=== PATIENT | male | born 1950 | race Caucasian/White ===

== ENCOUNTER 2019-12-16 22:40 | Inpatient (IN) ==
[2019-12-17] MEDS ORDERED: *HR* Promethazine 25 MG/ML VIAL IVP PRN (03:02)
[2019-12-17] MEDS ORDERED: Naloxone 0.4 MG/ML INJ IVP PRN (03:02)
[2019-12-17] MEDS ORDERED: Ipratropium/Albuterol Neb 3 ML IH PRN (03:07)
[2019-12-17] MEDS: MethylPREDNISolone 40 MG/ML VIAL IVP SCH ×2 (05:42→17:48)
[2019-12-17 06:28] LABS: Hemoglobin 8.4 g/dL (12.9-16.9); Immature Granulocytes % 0.4 % (0-4); Mean Platelet Volume 11.6 fL (9.4-12.4)
[2019-12-17 06:29] LABS: Basophils % 0.3 %; Eosinophils # 0.3 K/mcL (0.0-0.6); Hematocrit 28.7 % (37.5-50.1); Immature Platelets 7.4 % (1.1-6.1); Lymphocytes # 1.3 K/mcL (0.6-4.6); Lymphocytes % 17.9 %; Mean Corpuscular HGB Conc 29.3 g/dL (31.6-35.5); Mean Corpuscular Hemoglobin 27.9 pg (28.0-33.3); Mean Corpuscular Volume 95.3 fL (83.0-100.0); Monocytes # 0.8 K/mcL (0.0-1.3); Monocytes % 11.8 %; Red Blood Count 3.01 M/mcL (4.19-5.50); Red Cell Distribution Width 18.8 % (11.5-14.5); Segmented Neutrophils % 65.6 %; White Blood Count 7.1 K/mcL (4.3-11.1)
[2019-12-17 06:30] LABS: Neutrophils # 4.7 K/mcL (1.6-8.9); Platelet Count 96 K/mcL (140-400)
[2019-12-17 06:36] LABS: INR 1.2; Prothrombin Time 14.1 Seconds (9.4-12.1)
[2019-12-17 06:55] LABS: Troponin I 0.83 ng/mL (< 0.04)
[2019-12-17 06:56] LABS: % Iron Saturation 8 % (20-55); Alanine Aminotransferase 16 Units/L (7-52); Albumin 3.5 g/dL (3.5-5.7); Albumin/Globulin Ratio 1.3 (1.1-2.2); Alkaline Phosphatase 63 Units/L (34-104); Aspartate Amino Transferase 18 Units/L (13-39); BUN/Creatinine Ratio 9 (6-26); Bilirubin,Total 0.6 mg/dL (0.3-1.0); Blood Urea Nitrogen 9 mg/dL (8-23); Calcium 8.8 mg/dL (8.6-10.3); Carbon Dioxide 34 mEq/L (23-29); Chloride 101 mEq/L (98-107); Globulin 2.7 g/dL (2.4-3.5); Glucose 168 mg/dL (70-105); Iron 32 mcg/dL (65-175); Magnesium 1.6 mg/dL (1.6-2.6); Osmolality,Calculated 297 (280-300); Phosphorous 2.6 mg/dL (2.7-4.5); Potassium 3.4 mEq/L (3.5-5.1); Sodium 142 mEq/L (136-145); Total Protein 6.2 g/dL (6.4-8.9); Transferrin 282 mg/dL (203-362); eGFR For African Americans > 60 (> 60); eGFR For Non-African Americans > 60 (> 60)
[2019-12-17 07:07] LABS: Thyroid Stimulating Hormone 1.829 mcIU/mL (0.340-5.600)
[2019-12-17 07:12] LABS: Ferritin 445 ng/mL (20-250)
[2019-12-17 07:36] LABS: Folate 16.4 ng/mL (3.0-16.0)
[2019-12-17 08:28] LABS: Estimated Average Glucose 148 mg/dl
[2019-12-17] MEDS: Furosemide 20 MG/2 ML VIAL IVP SCH ×2 (09:57→17:48)
[2019-12-17] MEDS: Azithromycin 500 MG in 0.9 % Sodium Chloride 250 ML IVPB SCH (09:57)
[2019-12-17] MEDS: Pantoprazole 40 MG VIAL IVP SCH (09:58)
[2019-12-17] MEDS ORDERED: Cyanocobalamin (B-12) 1,000 MCG/ML VIAL IM ONE (10:37)
[2019-12-17] MEDS ORDERED: *HR* Dextrose 50 % in Water (Syg) 50 ML SYRINGE IVP PRN (10:39)
[2019-12-17] MEDS ORDERED: D5% in Water 1,000 ML IVC PRN (10:39)
[2019-12-17] MEDS ORDERED: Dextrose Gel 15 GM/37.5 ML TUBE PO PRN ×2 (10:39)
[2019-12-17] MEDS: cefTRIAXone 1,000 MG in Water for inj. (sterile) 10 ML IVP SCH (11:42)
[2019-12-17] MEDS: Insulin LISPRO 300 UNITS/3 ML VIAL SQ SCH ×2 (11:46→17:48)
[2019-12-17] MEDS ORDERED: Ipratropium/Albuterol Neb 3 ML IH SCH (12:00)
[2019-12-17] MEDS: Budesonide/Formoterol 160/4.5 1 PUFF INH IH SCH (19:44)
[2019-12-18] MEDS: Insulin LISPRO 300 UNITS/3 ML VIAL SQ SCH ×4 (00:18→11:32)
[2019-12-18] MEDS ORDERED: Insulin LISPRO 300 UNITS/3 ML VIAL SQ ONE (01:11)
[2019-12-18] MEDS: Budesonide/Formoterol 80/4.5 1 PUFF INH IH SCH ×3 (01:19→08:02)
[2019-12-18 03:47] LABS: Hematocrit 27.9 % (37.5-50.1); Hemoglobin 8.1 g/dL (12.9-16.9); Immature Granulocytes % 0.5 % (0-4); Immature Platelets 8.8 % (1.1-6.1); Lymphocytes # 0.4 K/mcL (0.6-4.6); Lymphocytes % 7.6 %; Mean Corpuscular Hemoglobin 27.6 pg (28.0-33.3); Mean Corpuscular Volume 94.9 fL (83.0-100.0); Monocytes # 0.4 K/mcL (0.0-1.3); Monocytes % 6.5 %; Neutrophils # 4.7 K/mcL (1.6-8.9); Red Blood Count 2.94 M/mcL (4.19-5.50); Red Cell Distribution Width 18.5 % (11.5-14.5); Segmented Neutrophils % 85.4 %; White Blood Count 5.5 K/mcL (4.3-11.1)
[2019-12-18 03:54] LABS: Platelet Count 95 K/mcL (140-400)
[2019-12-18 04:00] LABS: BUN/Creatinine Ratio 15 (6-26); Blood Urea Nitrogen 15 mg/dL (8-23); Calcium 8.9 mg/dL (8.6-10.3); Carbon Dioxide 37 mEq/L (23-29); Chloride 100 mEq/L (98-107); Glucose 259 mg/dL (70-105); Osmolality,Calculated 302 (280-300); Potassium 3.8 mEq/L (3.5-5.1); Sodium 141 mEq/L (136-145); eGFR For African Americans > 60 (> 60); eGFR For Non-African Americans > 60 (> 60)
[2019-12-18] MEDS: MethylPREDNISolone 40 MG/ML VIAL IVP SCH (06:08)
[2019-12-18] MEDS ORDERED: Sucralfate 1 GM TABLET PO SCH (07:30)
[2019-12-18 07:33] VITALS: BP 160/84
[2019-12-18] MEDS: Budesonide/Formoterol 160/4.5 1 PUFF INH IH SCH (08:02)
[2019-12-18] MEDS: Furosemide 20 MG/2 ML VIAL IVP SCH (08:23)
[2019-12-18] MEDS: Pantoprazole 40 MG VIAL IVP SCH (08:23)
[2019-12-18] MEDS: cefTRIAXone 1,000 MG in Water for inj. (sterile) 10 ML IVP SCH (08:23)
[2019-12-18] MEDS: Azithromycin 500 MG in 0.9 % Sodium Chloride 250 ML IVPB SCH (08:24)
[2019-12-18] MEDS ORDERED: Fenofibrate 54 MG TABLET PO SCH (09:00)
[2019-12-18] MEDS ORDERED: allopurinoL 100 MG TABLET PO SCH (09:00)
[2019-12-18] MEDS ORDERED: Cyanocobalamin (B-12) 1,000 MCG TABLET PO SCH (09:00)
[2019-12-18] MEDS ORDERED: amLODIPine 5 MG TABLET PO SCH (09:00)
[2019-12-18] MEDS ORDERED: metOLazone 5 MG TABLET PO SCH (10:30)
[2019-12-18] MEDS ORDERED: Insulin LISPRO 300 UNITS/3 ML VIAL SQ SCH (21:00)
[2019-12-18] MEDS ORDERED: Budesonide/Formoterol 80/4.5 1 PUFF INH IH SCH (22:00)
[2019-12-19] MEDS ORDERED: Azithromycin 250 MG TABLET PO SCH (09:00)
== END 2019-12-18 12:46 | disposition home or self-care (01) | DRG 280 ==
LOC: 2NENU
PROVIDERS: ADMIT Internal Medicine; ATTEND Internal Medicine